=== PATIENT | female | born 1995 | race Caucasian/White ===

== ENCOUNTER 2022-06-23 10:28 | Inpatient (IN) | payer MEDICAID ==
[2022-06-23 11:55] LABS: POTASSIUM,K 4.1 mmol/L (3.5-5.1)
[2022-06-23] MEDS ORDERED: Terbutaline 1 MG/ML SDV SUBCUT PRN (13:18)
[2022-06-23] MEDS ORDERED: Misoprostol 25 MCG (1/4 of 100 MCG) Tab VAG PRN (13:18)
[2022-06-23] MEDS ORDERED: Ondansetron 4 MG/2 ML SDV IVPUSH PRN (13:22)
[2022-06-23] MEDS ORDERED: Oxytocin/0.9 % Sodium Chloride 30 UNIT/500 ML BAG IV SCH ×2 (13:30→14:15)
[2022-06-23] MEDS: Lactated Ringers 1,000 ML IV SCH (13:48)
[2022-06-23] MEDS ORDERED: Tranexamic Acid 1,000 MG in Sodium Chloride 0.9% 100 ML IV PRN (14:01)
[2022-06-23] MEDS ORDERED: Water For Irrigation,Sterile 1,000 ML Container IRR PRN (14:01)
[2022-06-23] MEDS ORDERED: Sodium Chloride 0.9% 2.5 ML Syringe FLUSH PRN (14:01)
[2022-06-23] MEDS ORDERED: Misoprostol 200 MCG Tab PO PRN (14:01)
[2022-06-23] MEDS ORDERED: Methylergonovine 0.2 MG/1 ML Amp IM PRN (14:01)
[2022-06-23] MEDS ORDERED: Carboprost Tromethamine 250 MCG/1 ML Amp IM PRN (14:01)
[2022-06-23] MEDS ORDERED: Sodium Chloride 0.9% 10 ML Syringe FLUSH PRN (14:01)
[2022-06-23] MEDS ORDERED: Lidocaine 1% 50 ML MDV INJECT PRN (14:01)
[2022-06-23] MEDS ORDERED: Butorphanol 1 MG/ML SDV IVPUSH PRN (14:01)
[2022-06-23] MEDS ORDERED: Sodium Chloride 0.9% 20 ML SDV IV PRN (14:01)
[2022-06-23] MEDS ORDERED: ePHEDrine 50 MG/ML SDV IVPUSH PRN ×2 (17:44)
[2022-06-23] MEDS ORDERED: Phenylephrine HCl In 0.9% NaCl 1 MG/10 ML Vial IVPUSH PRN (17:44)
[2022-06-23] MEDS ORDERED: Ropivacaine HCl/PF 400 MG in Premix Bag 1 BAG EPIDUR SCH (17:45)
[2022-06-23] MEDS ORDERED: Phenylephrine HCl In 0.9% NaCl 1 MG/10 ML Vial IVPUSH SCH (17:45)
[2022-06-23] MEDS: Misoprostol 25 MCG (1/4 of 100 MCG) Tab VAG PRN (19:42)
[2022-06-23] MEDS ORDERED: Acetaminophen 500 MG Tab PO PRN (19:58)
[2022-06-23] MEDS ORDERED: Labetalol 100 MG Tab PO ONE (19:59)
[2022-06-23] MEDS: Calcium Carbonate 500 MG Tab.Chew PO PRN (20:38)
[2022-06-24] MEDS: Misoprostol 25 MCG (1/4 of 100 MCG) Tab VAG PRN ×2 (00:30→04:36)
[2022-06-24] MEDS: Lactated Ringers 1,000 ML IV SCH ×3 (11:08→17:30)
[2022-06-24] MEDS ORDERED: Ropivacaine/PF 400 MG/200 ML PCA ONE (13:49)
[2022-06-24] MEDS ORDERED: Bupivacaine 0.5% 10 ML SDV ONE ×2 (13:49→21:15)
[2022-06-24] MEDS: Calcium Carbonate 500 MG Tab.Chew PO PRN (19:28)
[2022-06-24] MEDS ORDERED: Simethicone 80 MG Tab.Chew PO PRN (22:37)
[2022-06-24] MEDS ORDERED: Acetaminophen/Codeine 300-30 MG Tab PO PRN (22:37)
[2022-06-24] MEDS ORDERED: Docusate Sodium 100 MG Cap PO PRN (22:37)
[2022-06-24] MEDS ORDERED: oxyCODONE 5 MG Tab PO PRN (22:37)
[2022-06-24] MEDS ORDERED: Acetaminophen 500 MG Tab PO PRN (22:37)
[2022-06-24] MEDS ORDERED: Aluminum Hydroxide/Magnesium Hydroxide/Simethicone XS Susp 30 ML Cup PO PRN (22:37)
[2022-06-24] MEDS ORDERED: Ibuprofen 400 MG Tab PO PRN (22:37)
[2022-06-24] MEDS ORDERED: Measles, Mumps & Rubella Vaccine 0.5 ML SDV SUBCUT ONE (22:37)
[2022-06-24] MEDS ORDERED: Ibuprofen 800 MG Tab PO PRN (22:37)
[2022-06-24] MEDS ORDERED: Famotidine 20 MG Tab PO PRN (22:37)
[2022-06-24] MEDS ORDERED: Bisacodyl 10 MG Supp RECTAL PRN (22:37)
[2022-06-24] MEDS: Acetaminophen 500 MG Tab PO PRN (23:02)
[2022-06-24] MEDS: Witch Hazel Medicated Pads 40/Jar TOP PRN (23:04)
[2022-06-24] MEDS: Lanolin 100% Cream 7 GM Tube TOP PRN (23:05)
[2022-06-24] MEDS: Benzocaine/Menthol 20%-0.5% Spray 78 GM Cannister TOP PRN (23:05)
[2022-06-25] MEDS: Benzocaine/Menthol 20%-0.5% Spray 78 GM Cannister TOP PRN ×2 (13:18→21:47)
[2022-06-25] MEDS: Witch Hazel Medicated Pads 40/Jar TOP PRN ×2 (13:18→21:47)
[2022-06-25] MEDS: Acetaminophen 500 MG Tab PO PRN (18:58)
[2022-06-25] MEDS: Lanolin 100% Cream 7 GM Tube TOP PRN (21:47)
[2022-06-26] MEDS: Acetaminophen 500 MG Tab PO PRN (09:33)
[2022-06-26 20:18] VITALS: BP 147/87; PULSE 87
== END 2022-06-26 21:10 | disposition home or self-care (01) | DRG 807 ==
LOC: MW.OBCHECK 10:28 → MW.OB 10:30 → MW.OBCHECK 14:00 → MW.OB 14:02 → OBSVTOIN 21:39 → MW.OB 06-25 00:54
PROVIDERS: ADMIT Obstetrics & Gynecology; ATTEND Obstetrics & Gynecology
PROC: 10E0XZZ Delivery of Products of Conception, External Approach (ICD-10-PCS; principal; 2022-06-23)
PROC: 0KQM0ZZ Repair Perineum Muscle, Open Approach (ICD-10-PCS; 2022-06-23)
PROC: 3E0P7VZ Introduction of Hormone into Female Reproductive, Via Natural or Artificial Opening (ICD-10-PCS; 2022-06-23)
PROC: 3E033VJ Introduction of Other Hormone into Peripheral Vein, Percutaneous Approach (ICD-10-PCS; 2022-06-23)
PROC: 3E0R3BZ Introduction of Anesthetic Agent into Spinal Canal, Percutaneous Approach (ICD-10-PCS; 2022-06-23)
PROC: 00HU33Z Insertion of Infusion Device into Spinal Canal, Percutaneous Approach (ICD-10-PCS; 2022-06-23)
DX: O13.4 Gestational [pregnancy-induced] hypertension without significant proteinuria, complicating childbirth (principal); Z37.0 Single live birth; Z3A.38 38 weeks gestation of pregnancy; O66.5 Attempted application of vacuum extractor and forceps; O70.1 Second degree perineal laceration during delivery; O77.0 Labor and delivery complicated by meconium in amniotic fluid; Z20.822 Contact with and (suspected) exposure to COVID-19
CPT/HCPCS: 36415; 51702; 59025; 59409; 80053; 81003; 82803; 84550; 85014; 85018; 85025; 86592; 86850; 86900; 86901; A9270-GY; J2405; J2590; J2795; J3490; J7120; U0002